=== PATIENT | male | born 1990 | race Caucasian/White ===

== ENCOUNTER 2018-09-27 16:40 | Emergency (ER) | payer SELFPAY ==
[~2018-09-27] VITALS: Ht 193 cm; Wt 138.3 kg
[2018-09-27 16:42] VITALS: Ht 193 cm; Wt 138.3 kg
[2018-09-27 18:36] VITALS: BP 130/80
== END 2018-09-27 18:36 | disposition home or self-care (01) ==
LOC: ED 16:40
DX: J45.901 Unspecified asthma with (acute) exacerbation (principal); F17.200 Nicotine dependence, unspecified, uncomplicated; Z91.030 Bee allergy status
CPT/HCPCS: J7512; J7620